=== PATIENT | female | born 1980 | race Caucasian/White ===

== ENCOUNTER 2019-02-20 16:33 | Inpatient (IN) | payer OTHER ==
[2019-02-20] MEDS ORDERED: Buffered Lidocaine 1% SYRIN* 1 ML/SYRINGE INTRADERM ONE (17:04)
[2019-02-20] MEDS ORDERED: Lactated Ringers 1000 ML Bag* 1,000 ML IV ONE (17:04)
[2019-02-20] MEDS ORDERED: Penicillin G Potassium IV* 5,000,000 UNITS in NS 0.9% 100 ML* 100 ML IVPB ONE (17:04)
--- NOTE | 2019-02-20 17:13 | HP ---
General Information - Reason for Visit contractions - General Information Maternal Age: 39 Grav: 2 Para: 1 SAB: 0 IEA: 0 Estimated Due Date: 02/17/19 Determined By: LMP Gestational Age in Weeks/Days: 40 4/7 Maternal Blood Type and Rh: A Positive - Results this Serology/RPR Result: Non-Reactive Rubella Result: Immune HBsAg Result: Negative HIV Result: Negative GBS Culture Result: Positive Past Medical History Delivery History: Hx Complicated Vaginal Delivery Delivery History Comment: Shoulder dystocia, resolved with Anna, suprapubic pressure, and delivery of posterior arm Pertinent Past Medical History: See Records Past Medical History Comment: Depression, stopped Wellbutrin in 2011 Pertinent Past Surgical History: None Pertinent Family History: See Records Family History Comment: Father: Alzheimer's disease Mother: Hypertension - Antepartal Records Antepartal Records: Reviewed, Complicated by: - Age 39 at delivery, normal NIPT Review of Systems Constitutional: Uncomfortable CV Complaint: No Respiratory: Shortness of Breath: No Gastrointestinal: No Nausea/Vomiting, Soft Stool - but patient reports taking castor oil this am Genitourinary: Dysuria, No Bleeding, No Leaking Fluid Musculoskeletal: No Epigastric Pain, Contractions Neurological: No Headache, No Visual Changes Movement: Normal Exam Allergies/Adverse Reactions: Allergies No Known Allergies Allergy (Verified 05/19/14 21:13) B/P: 118/78, P: 73, R: 18, T: 98.0 - Measurements Height: 5 ft 5 in Weight: 165 lb Weight in lbs: [id number] Body Mass Index (BMI): 27.4 Pre- Weight: 130 lb Weight Gained This : 35 lbs and 0 ozs - Exam Breast: Breast Exam Deferred CVA: No CVA Tenderness Extremities: No Edema Heart: Normal Rhythm/Heart Sounds HEENT: No Significant Findings Lungs: Clear Bilaterally Reflexes: DTR 2+ Thyroid: No Thyromegaly - Abdominal Exam Abdomen Exam: Non-Tender, Fundal Height Consistent with Dates - Ultrasound/Biophysical Profile Ultrasound Status: Not Done Targeted Exam Findings See L&D Outpatient Visit Provider Note for Findings: N/A Estimated Weight: 8 lb by maria antonia's Cervical Exam: 3cm Effacement: 90% Station: -1 Presenting Part: Vertex Membrane Status: Intact Bleeding/Discharge: None EFM Findings - External Monitor Findings Baseline Heart Rate: 120 External Monitor Findings: Accelerations Present, No Pattern of Variable or Late Decelerations, Variability Moderate, Baseline Stable Contractions: Regular, Moderate, 45-90 Seconds Contraction Frequency: 2-4 min Assessment/Plan - Assessment A: IUP at 40 4/7 weeks Category I FHR, no evidence of metabolic acidemia GBS positive Early labor P: Admit to inpatient Begin GBS prophylaxis per protocol Discussed comfort measures for labor Reassess PRN Anticipate SVB - Obstetrical Risk Factors Obstetrical Risk Factors: GBS Positive - Plan Plan: Admit - Anticipate Vaginal Delivery - Date/Time of Admission Date of Admission: 02/20/19 Time of Admission: 17:00
[2019-02-20 17:19] LABS: ABS Lymphocytes 1.6 10^3/ul (1.0-4.8); ABS Monocytes 0.5 10^3/ul (0-0.8); Eosinophil % 0.2 %; Hematocrit 37 % (35-47); Hemoglobin 12.5 g/dL (12.0-16.0); Lymphocyte % 25.8 %; Mean Corpuscular HGB Conc 34 g/dL (31-36); Mean Corpuscular Hemoglobin 31 pg (27-31); Mean Corpuscular Volume 90 fL (80-97); Mean Platelet Volume 10.9 fL (7.4-10.4); Platelet Count 190 10^3/uL (150-450); Red Blood Count 4.04 10^6 /uL (3.70-4.87); Red Cell Distribution Width 13 % (10-15); White Blood Count 6.1 10^3/uL (3.5-10.8)
[2019-02-20 17:56] LABS: Urine Benzodiazepine Screen None Detected (None Detect); Urine Opiates Screen None Detected (None Detect)
[2019-02-20] MEDS ORDERED: Lactated Ringers 1000 ML Bag* 1,000 ML IV SCH ×2 (18:00→23:00)
--- NOTE | 2019-02-20 19:19 | PN ---
Progress Note - Progress Note Date of Service: 02/20/19 Note: Quicknote: requesting to try nitrous for comfort. Education given, questions answered
--- NOTE | 2019-02-20 20:43 | PN ---
Progress Note - Progress Note Date of Service: 02/20/19 Note: S: Reports nitrous not working very well, things are feeling very intense for her with more pressure O: B/P: 128/74, P: 83, R: 18, T: 99.1 FHR: 120s by intermittent auscultation UCs: q2-5 min, moderate-strong to palpation VE: 7.5/100/-1, bulging bag of water A: IUP at 40 4/7 week No evidence of metabolic acidemia Active labor/transition P: Reassess PRN Anticipate SVB
[2019-02-20] MEDS ORDERED: Penicillin G Potassium IV* 2,500,000 UNITS in NS 0.9% 100 ML* 100 ML IVPB SCH (21:30)
[2019-02-20] MEDS ORDERED: fentaNYL* 50 MCG/ML 2 ML VIAL (100 MCG VIAL) IV SLOW PU ONE (21:50)
[2019-02-20] MEDS ORDERED: Oxytocin in LR* 20 UNITS/1,000 ML BAG IVPB ONE (21:53)
[2019-02-20] MEDS ORDERED: fentaNYL* 50 MCG/ML 2 ML VIAL (100 MCG VIAL) ONE (21:57)
[2019-02-20] MEDS ORDERED: Glycerin ADULT SUPP PR PRN (22:22)
[2019-02-20] MEDS ORDERED: Dibucaine 1% 28.35 GM TUBE PR PRN (22:22)
--- NOTE | 2019-02-20 22:30 | PROCNOTE ---
[facility] OB: Delivery Note - Delivery A Date of : 02/20/19 Time of : 21:47 [place] Sex: Male Weight at : 7 lb 11 oz Score 1 Minute: 8 Score 5 Minutes: 9 Gestational Age in Weeks and Days at Delivery: 40 Weeks and 3 Days Delivery Method: Spontaneous Vaginal Labor: Spontaneous Did Patient attempt ?: N/A, No Previous Amniotic Fluid: Clear Estimated Blood Loss: 400 Anesthesia/Analgesia: Nitrous-Labor, Other - Fentanyl 25 mcg for delivery of placenta Delivered By: Madelyn Braswell - Nursery Level of Nursery: Regular/Bedside - Perineum Perineal Injury: Abrasion Only - Not Repaired Perineal Injury Comment: Bilateral labial lacerations - Events Delivery Events of Note: Pitocin Only After Delivery, Partial Course of Antibiotics - for GBS prophylaxis - Additional Delivery Notes Additional Delivery Notes: in spontaneous labor progressed to complete and complete, began pushing at 2121. AROM to clear fluid at 0. Slow, controlled delivery of head OA to TOVA, nuchal cord x 1 reduced. Shoulders followed with next push. Infant delivered to maternal abdomen, HR > 110, dried and stimulated. Pt distressed, yelling "I don't want him!" desiring baby to go to warmer for awhile. Infant to warmer, bulb suctioned for copious secretions. Apgars 8 and 9. Anna Mancera not wanting us to touch her abdomen or vagina, refusing to allow traction on cord, stating she was in too much pain. Offered 25 mcg fentanyl IV for pain relief, Fiordaliza accepted. Pitocin IV intitated at 150 cc/hr. Micky placenta at 2204, followed by fist-sized blood clot. Fundus firm with massage. Perineum and vagina carefully inspected and bilateral labial abrasions noted, hemostatic and no repair needed. to mother's chest, initiated. SHF=364 cc. Mother and stable at time of note.
[2019-02-20] MEDS ORDERED: Ibuprofen TAB* 600 MG ONE (22:40)
[2019-02-20] MEDS: Ibuprofen TAB* 600 MG PO SCH (22:42)
[2019-02-21] MEDS ORDERED: Ammonia Inhalant* 1 EA AMP ONE (00:10)
[2019-02-21] MEDS: Acetaminophen TAB* 325 MG PO PRN ×3 (03:10→16:08)
[2019-02-21] MEDS: Ibuprofen TAB* 600 MG PO SCH ×4 (05:30→23:32)
[2019-02-21 07:29] LABS: ABS Lymphocytes 1.9 10^3/ul (1.0-4.8); ABS Monocytes 0.6 10^3/ul (0-0.8); Eosinophil % 0.1 %; Hematocrit 30 % (35-47); Hemoglobin 10.4 g/dL (12.0-16.0); Lymphocyte % 16.4 %; Mean Corpuscular HGB Conc 35 g/dL (31-36); Mean Corpuscular Hemoglobin 31 pg (27-31); Mean Corpuscular Volume 90 fL (80-97); Mean Platelet Volume 10.7 fL (7.4-10.4); Platelet Count 167 10^3/uL (150-450); Red Blood Count 3.31 10^6 /uL (3.70-4.87); Red Cell Distribution Width 13 % (10-15); White Blood Count 11.5 10^3/uL (3.5-10.8)
[2019-02-21] MEDS: Docusate CAP* 100 MG PO SCH ×3 (07:59→22:19)
[2019-02-21] MEDS ORDERED: Simethicone TAB* 80 MG TAB.CHEW PO SCH (08:30)
[2019-02-21] MEDS ORDERED: Ferrous Gluconate TAB* 324 MG TAB PO SCH (09:00)
[2019-02-21] MEDS: Witch Hazel PAD* JAR TOPICAL PRN (22:19)
[2019-02-22] MEDS: Ibuprofen TAB* 600 MG PO SCH ×2 (05:43→12:00)
[2019-02-22] MEDS: Docusate CAP* 100 MG PO SCH ×2 (08:19→12:00)
[2019-02-22 08:32] VITALS: BP 100/66
--- NOTE | 2019-02-22 09:56 | PTEDU ---
Patient Name: DAVEY GRIFFITHS DAVEY GRIFFITHS selected video: BBOB: Nurturing Your Gorgeous &Growing Baby by to view on 02/22/2019 at 9:54:00 AM [id number]
[2019-02-22] MEDS: Witch Hazel PAD* JAR TOPICAL PRN (12:24)
== END 2019-02-22 13:37 | disposition home or self-care (01) | DRG 807 ==
LOC: MCHOBOUT 16:33 → MCHOB 17:09
PROVIDERS: ADMIT Midwife; ATTEND Midwife
PROC: 10E0XZZ Delivery of Products of Conception, External Approach (ICD-10-PCS; principal; 2019-02-20)
PROC: 10907ZC Drainage of Amniotic Fluid, Therapeutic from Products of Conception, Via Natural or Artificial Opening (ICD-10-PCS; 2019-02-20)
PROC: 4A1HXCZ Monitoring of Products of Conception, Cardiac Rate, External Approach (ICD-10-PCS; 2019-02-20)
DX: O48.0 Post-term pregnancy (principal); Z37.0 Single live birth; O99.824 Streptococcus B carrier state complicating childbirth; O70.0 First degree perineal laceration during delivery; O69.81X0 Labor and delivery complicated by cord around neck, without compression, not applicable or unspecified; Z3A.40 40 weeks gestation of pregnancy
CPT/HCPCS: 36415; 80307; 85025; 86850; 86900; 86901; A9270-GY; J2540; J3010

== ENCOUNTER 2019-08-10 20:10 | Emergency (ER) | payer OTHER ==
[2019-08-10 20:29] VITALS: BP 115/65
--- NOTE | 2019-08-10 20:42 | UC ---
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 Today she developed increasing eye redness, left > right with mild lid swelling and erythema of the left eye. She has no visual disruption, reports mild photophobia. Wears disposable soft contact lenses. - History of Current Complaint Chief Complaint: UCRespiratory Stated Complaint: EYE COMPLAINT Time Seen by Provider: 08/10/19 20:30 Hx Obtained From: Patient Hx Last Menstrual Period: 07/20/19 Onset/Duration: Gradual Onset, Lasting Days Timing: Constant Severity Initially: Moderate Severity Currently: Moderate Pain Intensity: 3 Location of Injury: Conjunctiva, Eye Lid (upper) Character: Dull Aggravating Factor(s): Nothing Alleviating Factor(s): Nothing Associated Signs And Symptoms: Positive: Drainage (Clear) - Risk Factors Penetrating Injury Risk Factor: Negative Globe Rupture Risk Factors: Negative Acute Glaucoma Risk Factors: Negative Optic Artery Occlusion Risk Factors: Negative - Allergies/Home Medications Allergies/Adverse Reactions: Allergies Allergy/AdvReac Type Severity Reaction Status Date / Time No Known Allergies Allergy Verified 08/10/19 20:29 Home Medications: Home Medications 1 tab PO DAILY 05/09/14 [History Confirmed 08/10/19] Amoxicillin/Clavulanate TAB* [Augmentin TAB 875*] 875 mg PO BID #14 tab [Rx] PMH/Surg Hx/FS Hx/Imm Hx Previously Healthy: Yes - Surgical History Surgical History: None - Family History Known Family History: Positive: Non-Contributory - Social History Occupation: Employed Full-time Lives: With Family Alcohol Use: None Substance Use Type: None Smoking Status (MU): Never Smoked Tobacco Have You Smoked in the Last Year: No - Immunization History Most Recent Influenza Vaccination: 2018 Most Recent Tetanus Shot: 07/02 Most Recent Pneumonia Vaccination: unknown Review of Systems All Other Systems Reviewed And Are Negative: Yes Constitutional: Positive: Fatigue Skin: Positive: Negative Eyes: Positive: Drainage, Eye Redness, Photophobia - mild. Negative: Blurred Vision, Diplopia ENT: Positive: Sore Throat, Nasal Discharge Respiratory: Positive: Cough. Negative: Shortness Of Breath Cardiovascular: Negative: Palpitations, Chest Pain Gastrointestinal: Positive: Negative Genitourinary: Positive: Negative Motor: Positive: Negative Neurovascular: Positive: Negative Musculoskeletal: Positive: Myalgia Neurological/Mental Status: Positive: Negative Psychological: Positive: Negative Is Patient Immunocompromised?: No Physical Exam Triage Information Reviewed: Yes Appearance: Ill-Appearing - looks mildly unwell Vital Signs: Initial Vital Signs Temp 97.9 F 08/10/19 20:21 Pulse 76 08/10/19 20:21 Resp 16 08/10/19 20:21 BP 115/65 08/10/19 20:21 Pulse Ox 97 08/10/19 20:21 Eye Exam: Other - pupils freely reactive without pain. Eyes: Positive: Conjunctiva Inflamed - bilaterall, left greater than right, Other: - left upper lid with mild to moderate swelling, mild tenderness to palpation. ENT: Positive: Pharyngeal erythema, TMs normal Neck: Positive: Supple, Nontender, No Lymphadenopathy Respiratory: Positive: Lungs clear, Normal breath sounds Cardiovascular: Positive: RRR, No Murmur Musculoskeletal Exam: Normal Neurological Exam: Normal Psychological Exam: Normal Skin Exam: Normal Eye Complaint Course/Dx - Course Course Of Treatment: Bilateral conjunctivitis, possible early mild pre-septal cellulitis. Will begin treatment with oral antibiotic and eye drops. - Differential Dx/Diagnosis Differential Diagnosis/HQI/PQRI: Conjunctivitis, Corneal Abrasion, Periorbital Cellulitis Provider Diagnosis: Periorbital cellulitis of left eye Discharge ED - Sign-Out/Discharge Documenting (check all that apply): Patient Departure All imaging exams completed and their final reports reviewed: No Studies - Discharge Plan Condition: Stable Disposition: HOME Prescriptions: Amoxicillin/Clavulanate TAB* [Augmentin TAB 875*] 875 mg PO BID #14 tab Patient Education Materials: Periorbital Cellulitis in Adults (ED) Referrals: Catarino Lindsey MD [Primary Care Provider] - Additional Instructions: Use eye drops as directed. Begin oral antibiotic for onset of infection in the soft tissue around the eye. Augmentin is safe to use with . Compress your eye with cool cloths to decrease swelling. Yo should see improvement within 2 days. If you develop increasing eye pain or double vision please proceed to the emergency room for evaluation. Please refrain from contact lens use until you have completed the eye drops. - Billing Disposition and Condition Condition: STABLE Disposition: Home
[2019-08-10] MEDS ORDERED: Polymyx/Trimethoprim OPTH* 10 ML BTL BOTH EYES ONE (20:50)
[2019-08-10] MEDS ORDERED: Amoxicillin/Clavulanate TAB* 875 MG PO ONE (20:50)
== END 2019-08-10 21:07 | disposition home or self-care (01) ==
LOC: UCEAST 20:10
DX: L03.213 Periorbital cellulitis (principal); H10.9 Unspecified conjunctivitis; J02.9 Acute pharyngitis, unspecified; R09.89 Other specified symptoms and signs involving the circulatory and respiratory systems; R53.83 Other fatigue; R05 Cough
CPT/HCPCS: 99212; A9270-GY; G0463